=== PATIENT | male | born 1975 | race Caucasian/White ===

== ENCOUNTER 2024-08-26 10:38 | Outpatient (AMB) | payer MEDICARE, MEDICAID, SELFPAY ==
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
[2024-08-26 10:42] VITALS: BP 120/58; BMI 33.8
--- OUTSIDE RECORDS SUMMARY | 2024-08-26 11:31 | XMS_ITS | Encounter Summary ---
Author Organization [employer] Address [address] [place] [address] Care Team Providers Care Utility Bill Collection Clerk Name Role Phone Lita Morgan [facility] Primary Care Provider [phone] Provider, Not In System Primary Care Provider Un available Reason for Visit * Reason Onset Date Comments Call Back Request 03/29/2024 Un-panel patient 03/29/2024 Encounter Details Date Type Department Care Team (Late st Contact Info) Description 03/29/2024 Telephone Adult Medicine [address] [place] [address] Lita Morgan FNP [address] [place] [address] Call Back Request; Un-panel patient Social History Tobacco Use Types Packs/Day Years Used Date Smoking Tobacco: Every Day Cigarettes 0.3 30 Smokeless Tobacco: Never Comments:Trying to quit Alcohol Use Standard Drinks/Week Comments Not Currently 0 (1 standard drink = 0.6 oz pur e alcohol) once in a while Housing Stability Answer Date Recorded What is your housing situation today? I have beverly blanco 07/14/[address] you li ve. Do you have problems with any of the following? None of the above 07/14/2023 Food Insecurity Answer Date Recorded Within the past 12 months, y ou worried that your food would run out before you got money to buy more: Never True 07/14/2023 Within the past 12 months,th e food you bought just didn't last and you didn't have enough money to get more: Never True Transportation Answer Date Recorded In the past 12 months, has l ack of transportation kept you from medical appts, meetings, work or from getting things needed for daily living? No 07/14/2023 Utilities Answer Date Recorded In the past 12 months, has t he electric, gas, oil or water company threatened to shut off services in your home? No 07/14/2023 Depression Answer Date Recorded Patient Health Questionnaire-2 Score 1 03/14/2022 Sex and Gender Information Value Date Recorded Sex Assigned at Male 12/27/2021 5:56 PM EDT Legal Sex Male 5:56 PM EDT Gender Identity Male 12/27/2021 5:56 PM EDT Sexual Orientation Straight 12/27/2021 5: 56 PM EDT documented as of this encounter Miscellaneous Notes * Telephone Encounter - Ny Esparza - 04/01/2024 10:13 AM EST Inactivated in [facility] * Telephone Encounter - Berenice Ayala RN - 03/29/2024 2:54 PM EST See below, appears patient has new PCP. Please un-panel. * Telephone Encounter - Bella Stoll RN - 03/29/2024 2:48 PM EST Call to Dr Thomson - informed pt w/ new PCP Offered PCP info - declined I will get it from his aunt, she's very involved in his care * Telephone Encounter - VIJAY Reeder - 03/29/2024 2:41 PM EST Ie recommend that hospital call this current PCP unless it is question specific to me * Telephone Encounter - VIJAY Reeder - 03/29/2024 2:40 PM EST I see per chart review that patient has been seeing new PCP in [place]- her information is below. I recommend following up with this current provider. Aaliyah Perkins, DO [address], [address] [place] [address] * Telephone Encounter - Mary Randhawa - 03/29/2024 1:[address] Tejada from [facility] called requesting a call back from pt pcp regarding pt is currently admitted to [facility]. Pls call Dr. Tejada. documented in this encounter Plan of Treatment Not on file documented as of this encounter Visit Diagnoses Not on filedocumented in this encounter Care Teams Utility Bill Collection Clerk Relationship Specialty Start Date End Date Lita Morgan FNP [address] [place] [id number] PCP - General 03/02/21 03/30/24 Provider, Not In System PCP - General Family Medicine 03/31/24 documented as of this encounter
== END 2024-08-26 12:04 | disposition home or self-care (01) ==
LOC: HO.PMC 10:38
PROVIDERS: Visit Provider Registered Nurse Emergency
DX: G89.4 Chronic pain syndrome (principal); Z79.891 Long term (current) use of opiate analgesic; T14.8XXA Other injury of unspecified body region, initial encounter; L90.5 Scar conditions and fibrosis of skin; F19.11 Other psychoactive substance abuse, in remission; F10.11 Alcohol abuse, in remission
CPT/HCPCS: 99204; G2211

== ENCOUNTER → 2024-08-26 10:38 | Outpatient (BNVA) | payer MEDICARE, MEDICAID, SELFPAY | PROVIDERS: Visit Provider Registered Nurse Emergency | DX: G89.4 Chronic pain syndrome (principal); T14.8XXD Other injury of unspecified body region, subsequent encounter; F11.20 Opioid dependence, uncomplicated; L90.5 Scar conditions and fibrosis of skin; F19.11 Other psychoactive substance abuse, in remission; F10.11 Alcohol abuse, in remission | CPT/HCPCS: 99202 ==